=== PATIENT | male | born 1990 | race African-American/Black ===

== ENCOUNTER 2018-08-09 08:25 | Emergency (ER) | payer MEDICAID ==
[~2018-08-09] VITALS: Ht 175.3 cm; Wt 65.8 kg
[~2018-08-09 08:25] MED LIST: ASPI-612 PO
--- NOTE | 2018-08-09 08:32 | NUR ---
ABBEY LEBRON AT BEDSIDE FOR MSE.
[2018-08-09] MEDS ORDERED: ONDANSETRON 4 MG/2 ML VIAL ONE (08:38)
[2018-08-09] MEDS ORDERED: ONDANSETRON 4 MG/2 ML VIAL IV ONE (08:45)
[2018-08-09] MEDS ORDERED: IV NORMAL SALINE 1000 ML BAG IV ONE (08:45)
[2018-08-09 08:47] LABS: BASOPHILS % (AUTO) 0.4 % (0.0-2.0); EOSINOPHILS # (AUTO) 0.1 K/uL (0.0-0.7); EOSINOPHILS % (AUTO) 1.1 % (0.0-7.0); HEMOGLOBIN 16.8 g/dL (12.5-16.3); LYMPHOCYTES # (AUTO) 0.5 K/uL (20.0-40.0); LYMPHOCYTES % (AUTO) 9.1 % (20.5-51.5); MEAN CORPUSCULAR HEMOGLOBIN 29.4 uug (23.8-33.4); MEAN CORPUSCULAR HGB CONC 34 g/dL (32.5-36.3); MEAN CORPUSCULAR VOLUME 86.1 fL (73.0-96.2); MONOCYTES # (AUTO) 0.6 K/uL (2.0-10.0); MONOCYTES % (AUTO) 10.8 % (0.0-11.0); NEUTROPHILS # (AUTO) 4.2 K/uL (1.8-8.9); NEUTROPHILS % (AUTO) 78.6 % (38.5-71.5); PLATELET COUNT (AUTO) 223 K/uL (152-348); WHITE BLOOD COUNT (AUTO) 5.4 K/uL (3.6-10.2)
[2018-08-09 08:50] LABS: POTASSIUM 3.8 mmol/L (3.5-5.1)
[2018-08-09 08:56] LABS: BILIRUBIN,DIRECT 0.2 mg/dL (0.0-0.2); BILIRUBIN,TOTAL 0.4 mg/dL (0.2-1.0); TOTAL PROTEIN, SERUM 7.6 g/dL (6.4-8.2)
--- NOTE | 2018-08-09 09:17 | NUR ---
ABBEY LEBRON AT BEDSIDE FOR PT UPDATE.
--- NOTE | 2018-08-09 09:28 | NUR ---
Patient discharged to home in stable conditon. Written and verbal after care instructions given. Patient verbalizes understanding of instructions. ALL BELONGINGS W/ PT. PT SELF-AMBULATED W/O DIFFICULTY. 18G IV ACCESS IN LAC REMOVED PRIOR TO D/C - INNER CANNULA INTACT.
[2018-08-09 09:29] VITALS: BP 110/80
== END 2018-08-09 09:30 | disposition home or self-care (01) ==
LOC: ER 08:25
DX: A08.4 Viral intestinal infection, unspecified (principal); Z79.82 Long term (current) use of aspirin
CPT/HCPCS: 36415; 80048; 80076; 83690; 85025; 96374; 99283; J2405; A4663; J7030

== ENCOUNTER 2018-08-12 21:39 | Emergency (ER) | payer MEDICAID ==
[~2018-08-12] VITALS: Ht 175.3 cm; Wt 63.5 kg
[2018-08-12] MEDS: IV NORMAL SALINE 1000 ML BAG IV ONE (22:27)
[2018-08-12 22:29] LABS: BASOPHILS % (AUTO) 0.3 % (0.0-2.0); EOSINOPHILS # (AUTO) 0.1 K/uL (0.0-0.7); EOSINOPHILS % (AUTO) 2.6 % (0.0-7.0); HEMATOCRIT 45.6 % (36.7-47.1); HEMOGLOBIN 15.8 g/dL (12.5-16.3); LYMPHOCYTES % (AUTO) 21.3 % (20.5-51.5); MEAN CORPUSCULAR HGB CONC 35 g/dL (32.5-36.3); MEAN CORPUSCULAR VOLUME 83.3 fL (73.0-96.2); MONOCYTES # (AUTO) 1.1 K/uL (2.0-10.0); MONOCYTES % (AUTO) 21.8 % (0.0-11.0); NEUTROPHILS # (AUTO) 2.6 K/uL (1.8-8.9); PLATELET COUNT (AUTO) 240 K/uL (152-348); RED BLOOD CELL COUNT(AUTO) 5.47 MIL/uL (4.06-5.63); WHITE BLOOD COUNT (AUTO) 4.8 K/uL (3.6-10.2)
[2018-08-12] MEDS: ONDANSETRON 4 MG/2 ML VIAL IV ONE (22:30)
[2018-08-12] MEDS ORDERED: ONDANSETRON 4 MG/2 ML VIAL ONE (22:31)
[2018-08-12] MEDS ORDERED: PANTOPRAZOLE SODIUM 40 MG VIAL ONE (22:31)
[2018-08-12] MEDS: PANTOPRAZOLE SODIUM 40 MG VIAL IV ONE (22:34)
[2018-08-12 22:55] LABS: BILIRUBIN,DIRECT 0.1 mg/dL (0.0-0.2); BILIRUBIN,TOTAL 0.4 mg/dL (0.2-1.0); POTASSIUM 3.1 mmol/L (3.5-5.1); TOTAL PROTEIN, SERUM 6.8 g/dL (6.4-8.2)
[2018-08-12] MEDS ORDERED: KETOROLAC TROMETHAMINE 30 MG INJ ONE (22:56)
[2018-08-12] MEDS ORDERED: DIPHENOXYLATE HCL/ATROP SULF TABLET ONE (22:57)
[2018-08-12] MEDS: DIPHENOXYLATE HCL/ATROP SULF TABLET PO ONE (23:01)
[2018-08-12] MEDS: KETOROLAC TROMETHAMINE 30 MG INJ IVP ONE (23:02)
--- NOTE | 2018-08-12 23:38 | NUR ---
Pt states he does not feel nauseous anymore. Pain med effective.
[2018-08-12 23:42] LABS: LYMPHOCYTES % (MANUAL) 26 % (20-40); MONOCYTES % (MANUAL) 12 % (2-10); NEUTROPHILS % (MANUAL) 62 % (42-75)
[2018-08-12] MEDS ORDERED: POTASSIUM BICARBONATE/CIT AC 25 MEQ TABLET.EFF ONE (23:51)
[2018-08-12] MEDS: POTASSIUM BICARBONATE/CIT AC 25 MEQ TABLET.EFF PO ONE (23:55)
--- NOTE | 2018-08-13 | NUR ---
IV removed. Catheter intact and site benign. Pressure and 4x4 gauze applied to site. No bleeding noted.
--- NOTE | 2018-08-13 00:01 | NUR ---
Patient discharged to home in stable conditon. Written and verbal after care instructions given. Patient verbalizes understanding of instructions. Pt ambulated out of ER in stable gait with friend. All belongings w pt. VSS. No acute distress noted.
[2018-08-13 00:02] VITALS: BP 114/74
== END 2018-08-13 00:02 | disposition home or self-care (01) ==
LOC: ER 21:41
DX: A08.4 Viral intestinal infection, unspecified (principal); Z79.82 Long term (current) use of aspirin
CPT/HCPCS: 36415; 80048; 80076; 83690; 85025; 96361; 96374; 96375; 99283; C9113; J1885; J2405; A4663; J7030